=== PATIENT | female | born 1975 | race Caucasian/White ===

== ENCOUNTER 2018-10-19 06:25 | Emergency (ER) | payer OTHER ==
[~2018-10-19] VITALS: Ht 175.3 cm; Wt 115.1 kg
[2018-10-19 06:29] VITALS: Ht 175.3 cm; Wt 115.1 kg
--- NOTE | 2018-10-19 06:50 | ERD ---
ER Documentation Chief Complaint Chief Complaint non-radiating chest pain started around 0400,feeling nauseated HPI This is a 43-year-old female with a past medical history of hypertension who is presenting with gnawing aching epigastric abdominal pain radiating into her throat and mid chest with associated nausea but no vomiting. Her symptoms began last night, but she is not sure if it was associated with eating or not. She do es not endorse shortness of breath. The patient has not had any lightheadedness or dizziness. She has not had any diaphoresis. The patient denies changes to bowel movements or urination. She has not had constipation or diarrhea. She has not had any black or bloody or tarry stools. She denies dysuria or hematuria or urgency or frequency. The patient denies feeling sick recently. The patient denies fever or chills. The patient has had no headache or vision changes. The patient does not endorse neck or back pain. The patient has had no focal deficits. The patient has had no weakness or numbness or tingling to the face or extremities. ROS All systems reviewed and are negative except as per history of present illness. Medications Home Meds Active Scripts Ondansetron Hcl* (Zofran*) 8 Mg Tablet, 8 MG PO Q6H PRN for NAUSEA AND OR VOMITING, #20 TAB Prov:CELIO MCGUIRE MD 10/19/18 Famotidine* (Pepcid*) 20 Mg Tablet, 20 MG PO BID for 14 Days, TAB Prov:CELIO MCGUIRE MD 10/19/18 Reported Medications Medroxyprogesterone Acetate* (Provera*) 10 Mg Tablet, 10 MG PO DAILY, TAB TAKE FOR 10 DAYS EVERY OTHER MONTH 10/19/18 Allergies Allergies: Coded Allergies: No Known Allergy (Unverified , 10/19/18) PMhx/Soc Medical and Surgical Hx: pt denies Surgical Hx History of Surgery: No Anesthesia Reaction: No Hx Neurological Disorder: No Hx Respiratory Disorders: No Hx Cardiac Disorders: Yes (Hypertension) Hx Psychiatric Problems: No Hx Miscellaneous Medical Probl: No Hx Alcohol Use: No Hx Substance Use: No Hx Tobacco Use: No FmHx Family History: No diabetes Physical Exam Vitals Vital Signs Date Temp Pulse Resp B/P (MAP) Pulse Ox O2 O2 Flow FiO2 Time Delivery Rate 10/19/18 98.3 67 20 156/92 98 Room Air 11:17 (113) 10/19/18 Nasal 2 07:32 Cannula 10/19/18 98.0 88 20 175/90 98 06:29 (118) Physical Exam Const: No apparent distress, well-developed, well-nourished Head: Normocephalic, Atraumatic Eyes: Normal Conjunctiva. Extraocular movements intact. Pupils equal, round and reactive to light ENT: Normal External Ears, Nose and Mouth. Neck: Full range of motion. No meningismus. Resp: Clear to auscultation bilaterally, No wheezes, rales or rhonchi Cardio: Regular rate and rhythm. No murmurs, rubs or gallops Abd: Soft, non distended. Epigastric tenderness. Normal bowel sounds Skin: No petechiae or rashes Back: No midline tenderness. No CVA tenderness Ext: No cyanosis, or edema Neur: Awake and alert, oriented 4. Cranial nerves intact. No facial droop. Normal strength, sensation and coordination. Psych: Normal Mood and Affect Result Diagram: 10/19/1872610/19/18726 Results 24 hrs Laboratory Tests Test 10/19/18 07:27 White Blood Count 8.5 10^3/ul Red Blood Count 5.10 10^6/ul Hemoglobin 15.2 g/dl Hematocrit 45.8 % Mean Corpuscular Volume 89.8 fl Mean Corpuscular Hemoglobin 29.8 pg Mean Corpuscular Hemoglobin Concent 33.2 g/dl Red Cell Distribution Width 12.1 % Platelet Count 270 10^3/UL Mean Platelet Volume 10.9 fl Immature Granulocytes % 0.200 % Neutrophils % 69.4 % Lymphocytes % 23.8 % Monocytes % 5.3 % Eosinophils % 0.9 % Basophils % 0.4 % Nucleated Red Blood Cells % 0.0 /100WBC Immature Granulocytes # 0.020 10^3/ul Neutrophils # 5.9 10^3/ul Lymphocytes # 2.0 10^3/ul Monocytes # 0.5 10^3/ul Eosinophils # 0.1 10^3/ul Basophils # 0.0 10^3/ul Nucleated Red Blood Cells # 0.0 10^3/ul Sodium Level 140 mmol/L Potassium Level 4.2 mmol/L Chloride Level 101 mmol/L Carbon Dioxide Level 27 mmol/L Anion Gap 12 Blood Urea Nitrogen 22 mg/dl Creatinine 0.77 mg/dl Est Glomerular Filtrat Rate mL/min > 60 mL/min Glucose Level 213 mg/dl Calcium Level 9.5 mg/dl Total Bilirubin 0.2 mg/dl Direct Bilirubin 0.00 mg/dl Indirect Bilirubin 0.2 mg/dl Aspartate Amino Transf (AST/SGOT) 24 IU/L Alanine Aminotransferase (ALT/SGPT) 30 IU/L Alkaline Phosphatase 73 IU/L Troponin I < 0.012 ng/ml Total Protein 7.9 g/dl Albumin 4.3 g/dl Globulin 3.60 g/dl Albumin/Globulin Ratio 1.19 Lipase 61 U/L Current Medications Medications Dose Sig/Barb Start Time Status Last (Trade) Ordered Route PRN Stop Time Admin Dose Reason Admin Ondansetron 4 mg ONCE STAT 10/19/18 DC 10/19/18 HCl (Zofran IV 09:43 10/19/18 09:52 Inj) 09:45 Famotidine 20 mg ONCE STAT 10/19/18 DC 10/19/18 (Pepcid Iv) IV 09:43 10/19/18 09:52 09:45 40 ml ONCE STAT 10/19/18 DC 10/19/18 Miscellaneous PO 09:43 10/19/18 09:52 Medication 09:45 (Gi Cocktail (2)) [place]/ 2 tab ONCE STAT 10/19/18 DC 10/19/18 Phenobarbital PO 09:43 10/19/18 09:53 () 09:45 Procedures/MDM MDM The patient's presentation warrants further investigation. Previous medical records, if available, were reviewed. LABS The patient's laboratory testing was obtained and reviewed. No emergent treatment was required unless described below. CBC: No E/o systemic infection or severe anemia or thrombocytopenia Chemistry: No E/o severe acidosis or alkalosis or renal failure or liver disease or diabetic ketoacidosis. Mildly elevated BUN, concerning for possible dehydration. Lipase: No E/o pancreatitis EKG EKG read by me: Rate/Rhythm: Regular rate and rhythm at a rate of 70 bpm Intervals: Normal [place]: Normal Impression: No evidence of acute ischemia or arrhythmia IMAGING Imaging and Radiology interpretation reviewed. CXR FINDINGS: There is no airspace consolidation or focal infiltrate. No pleural effusion or pneumothorax. Cardiac silhouette and mediastinal contours are unremarkable. Pulmonary vasculature appears normal. Regional bones are grossly unremarkable. IMPRESSION: No evidence of active cardiopulmonary disease. Electronically viewed and signed by Physician Manuel on 10/19/2018 07:53 US RUQ FINDINGS: The pancreas is partially visualized and is otherwise without abnormal echogenicity. The liver displays diffuse increased echogenicity. The liver measures 16.4 cm in length. No evidence of intrahepatic biliary ductal dilatation is seen. The portal and hepatic veins are unremarkable. The gall bladder demonstrates no wall thickening, sludge, nor stones. No pericholecystic fluid is seen. The common bile duct measures 2.2 mm and is not dilated. The right kidney displays normal echogenicity. The right kidney measures 10.1 cm in maximal length. No caliectasis or hydronephrosis is seen. No free fluid is seen. IMPRESSION: Hepatic steatosis. Electronically viewed and signed by Edgard Gusman MD, MD on 10/19/2018 10:44 TREATMENT/DISPOSITION The patient presents with epigastric abdominal pain. She has had these symptoms before, and there is concern for gastritis versus GERD versus PUD. The patient was treated with Zofran, Pepcid and a GI cocktail with some improvement of her symptoms there is also consideration for gallbladder disease. The patient's. Ultrasound was reassuring. I do not suspect cholelithiasis or cholecystitis as the etiology of her symptoms. The patient does not have any evidence of peritonitis. The patient does not have clinical symptoms concerning for mesenteric ischemia or ischemic colitis. The patient does not have left upper quadrant tenderness. I have low suspicion for pancreatitis. The patient does not have any right lower quadrant tenderness, or periumbilical tenderness. I have low suspicion for appendicitis. The patient does not have suprapubic tenderness. I have decreased suspicion for cystitis. The patient does not have any left lower quadrant tenderness, and I have low suspicion for diverticulosis or diverticulitis. The patient does not have any flank tenderness. The patient does not have gross hematuria. I have decreased suspicion for nephrolithiasis or renal colic. The patient does not have any palpable pulsatile mass or severe abdominal pain radiating to the back. I have low suspicion for aortic aneurysm, dissection or rupture. I suspect that the patient's reported chest pain is related to to her epigastric pain. The patient's chest xray does not reveal pneumonia or pneumothorax or pleural effusions or pulmonary edema. The patient does not have a widened mediastinum and does not have signs or symptoms concerning for thoracic aortic aneurysm or dissection. The patient does not have pneumomediastinum or signs concerning for esophageal tear or rupture. The patient has no clinical or radiographic signs of pericardial effusion or tamponade. The patient does not have pneumoperitoneum and I have decreased suspicion of viscus perforation as possible referred pain. The patient does not have a history of heart failure and I have low suspicion for this. The patient does not have a diagnosis of COPD and is not wheezing today. The patient is not tachypneic or hypoxic. The patient is breathing comfortably and without pleuritic pain. The patient is not on hormonal therapy. The patient has no history of clotting or bleeding disorders. The patient has no calf tenderness. The patient has had no hemoptysis. I have decreased suspicion for PE. The patient's troponin and EKG are reassuring. I have low suspicion for acute coronary syndrome. The patient's HEART score is equal to or less than 3. This stratifies the patient into the low risk (<1%) group for an major adverse cardiac event within the next 30 days. Shared decision making was enacted. The risks and benefits of admission and discharge were discussed with the patient and it was ultimately decided that the patient would be discharged with close outpatient follow up and evaluation for functional testing within 72 hours. DISCHARGE Upon reevaluation of the patient, symptoms have improved. No emergent diagnoses were identified. At this time, I feel that the patient stable for discharge. The patient was instructed to follow-up with a primary care physician in 1-3 days. The patient will be given strict precautions with which to return to the emergency department. Prescriptions: Pepcid, Zofran The patient's blood pressure was elevated at greater than 120/80 while in the emergency department. The patient was otherwise stable with no evidence of hypertensive urgency or emergency. The patient does not require admission for blood pressure control. I have discussed with the patient the risks of hypertension. I have instructed the patient to return to the ER for any new or worsening symptoms including chest pain, shortness of breath, headache, blurred vision, confusion, nausea, vomiting or LOC. I have advised the patient to follow up with the primary care physician for outpatient monitoring and treatment for hypertension in 1-3 days. Disclaimer: Inadvertent spelling and grammatical errors are likely due to EHR/dictation software use and do not reflect on the overall quality of patient care. Note that the electronic time recorded on this note does not necessarily reflect the actual time of the patient encounter. Departure Diagnosis: Primary Impression: Epigastric pain Additional Impressions: Nausea Elevated BUN Nonspecific chest pain Condition: Stable CELIO MCGUIRE MD Oct 19, 2018 06:50
[2018-10-19] MEDS ORDERED: BELLADONNA/PHENOBARBITAL TAB PO STA (09:43)
[2018-10-19] MEDS ORDERED: ONDANSETRON 4 MG INJ IV STA (09:43)
[2018-10-19] MEDS ORDERED: FAMOTIDINE 20 MG INJ IV STA (09:43)
[2018-10-19] MEDS ORDERED: LIDOCAINE/MYLANTA 40 ML BTL PO STA (09:43)
[2018-10-19] MEDS ORDERED: MEDR10TA2 PO (10:48)
[2018-10-19] MEDS ORDERED: FAMO-96 PO (11:02)
[2018-10-19] MEDS ORDERED: ONDA8TAB9 PO (11:02)
[2018-10-19 11:17] VITALS: BP 156/92; PULSE 67; RESP 20
== END 2018-10-19 11:23 | disposition home or self-care (01) ==
LOC: E/R 06:25
DX: R10.13 Epigastric pain (principal); I10 Essential (primary) hypertension; R11.0 Nausea; R79.89 Other specified abnormal findings of blood chemistry
CPT/HCPCS: 36415; 71045; 76705; 80053; 83690; 84484; 85025; 93005; 96374; 96375; 99285; J2405